=== PATIENT | female | born 1955 | race Caucasian/White ===

== ENCOUNTER 2021-12-20 15:58 | Emergency (ER) | payer MEDICARE, BC ==
[2021-12-20] MEDS ORDERED: GI Cocktail Oral Solution 30 ML PO ONE (17:08)
[2021-12-20 17:16] LABS: ANION GAP 8.9 mEq/L (7-13)
[2021-12-20] MEDS ORDERED: Iopamidol 612 MG/ML 100 ML Bottle IVPUSH ONE (17:40)
== END 2021-12-20 17:53 | disposition home or self-care (01) ==
LOC: DL.ED 15:58
DX: R10.13 Epigastric pain (principal); E66.9 Obesity, unspecified; Z68.39 Body mass index [BMI] 39.0-39.9, adult; Z88.5 Allergy status to narcotic agent; Z79.899 Other long term (current) drug therapy; Z90.710 Acquired absence of both cervix and uterus
CPT/HCPCS: 36415; 80053; 83605; 83690; 83735; 85025; 86140; 99284; A9270-GY